=== PATIENT | male | born 1945 | race Caucasian/White ===

== ENCOUNTER 2018-07-28 02:04 | Emergency (ER) | payer MEDICAID ==
[2018-07-28] MEDS ORDERED: Albuterol-Ipratrop 3 mg / 0.5 (3 ml) UD ONE ×2 (02:12→02:50)
[2018-07-28 02:22] VITALS: RESP 20
[2018-07-28] MEDS ORDERED: Albuterol-Ipratrop 3 mg / 0.5 (3 ml) UD INH STA (02:31)
[2018-07-28 03:08] LABS: BASO % 0.7 % (0.0-2.0); HEMOGLOBIN 14.6 g/dL (12.0-18.0); LYMPH # 2.4 K/uL (1.0-4.3); LYMPH % 35.6 % (20.0-40.0); MEAN CELL VOLUME 96.8 fL (80.0-94.0); MEAN CORPUSCULAR HEMOGLOBIN 32.3 pg (27.0-31.0); MEAN CORPUSCULAR HGB CONC 33.4 g/dL (33.0-37.0); MEAN PLATELET VOLUME 9.6 fL (7.2-11.7); MONO # 0.7 K/uL (0.0-0.8); NEUT # 2.6 K/uL (1.8-7.0); NEUT % 38.7 % (50.0-75.0); RBC 4.52 Mil/uL (4.40-5.90); RED CELL DISTRIBUTION WIDTH 13.6 % (11.5-14.5); WHITE BLOOD COUNT 6.8 K/uL (4.8-10.8)
[2018-07-28 03:29] LABS: BLOOD UREA NITROGEN 13 mg/dL (9-20); CALCIUM 8.7 mg/dl (8.6-10.4); GFR NON-AFRICAN AMERICAN > 60
[2018-07-28 03:45] LABS: ALB/GLOB RATIO 1.1 (1.0-2.1); ALT/SGPT 19 U/L (21-72); AST/SGOT 24 U/L (17-59)
[2018-07-28] MEDS ORDERED: MethylPREDNISolone 40 mg Vial IVP STA (04:32)
[2018-07-28] MEDS: MethylPREDNISolone 40 mg Vial IVP STA ×2 (04:33→04:38)
[2018-07-28 05:35] VITALS: BP 108/62; PULSE 84; TEMP 97.9; O2SAT 94
--- NOTE | 2018-07-28 06:22 | C.PDOC ---
History Of Present Illness 73 y/o male presents to the ED with complaints of a mild cough and SOB for 1 day. Patient states that cough is chronic. He denies any chest pain, fever, chills, or recent travel. Patient admits to smoking heavily. Time Seen by Provider: 07/28/18 02:25 Chief Complaint (Nursing): Shortness Of Breath History Per: Patient History/Exam Limitations: no limitations Onset/Duration Of Symptoms: Days (x1) Current Symptoms Are (Timing): Still Present Past Medical History Reviewed: Historical Data, Nursing Documentation, Vital Signs Vital Signs: Last Vital Signs Temp 97.9 F 07/28/18 05:29 Pulse 84 07/28/18 05:29 Resp 20 07/28/18 05:29 BP 108/62 07/28/18 05:29 Pulse Ox 94 L 07/28/18 05:29 - Medical History PMH: COPD Denies: Chronic Kidney Disease Family History: States: Unknown Family Hx - Social History Hx Alcohol Use: Yes (ON WEEKENDS) Hx Substance Use: No - Immunization History Hx Tetanus Toxoid Vaccination: Yes Hx Influenza Vaccination: No Hx Pneumococcal Vaccination: Yes Review Of Systems Except As Marked, All Systems Reviewed And Found Negative. Constitutional: Negative for: Fever, Chills Cardiovascular: Negative for: Chest Pain Respiratory: Positive for: Cough, Shortness of Breath Physical Exam - Physical Exam Appears: Non-toxic, No Acute Distress Skin: Normal Color, Warm, Dry Head: Atraumatic, Normacephalic Eye(s): bilateral: Normal Inspection, PERRL, EOMI Neck: Normal ROM Chest: Symmetrical Cardiovascular: Rhythm Regular, No Murmur Respiratory: No Rales, No Rhonchi, Wheezing (faint bilateral expiratory wheezing) Gastrointestinal/Abdominal: Soft, No Tenderness, No Distention Extremity: Bilateral: Atraumatic, Normal Color And Temperature, Normal ROM Neurological/Psych: Oriented x3, Normal Speech ED Course And Treatment - Laboratory Results Result Diagrams: 07/28/18 03:03 07/28/18 03:03 ECG: Interpreted By Me, Viewed By Me ECG Rhythm: Sinus Rhythm ECG Interpretation: No Acute Changes Rate From EC (bpm) O2 Sat by Pulse Oximetry: 94 (RA) Pulse Ox Interpretation: Normal Medical Decision Making Medical Decision Making: Impression: chronic cough, SOB Initial Plan: --EKG --Blood work --flu swab --blood cultures --albuterol neb x1 --solu-medrol 125 mg IVP --chest x-ray --peak flow pre/post neb Progress: On re-evaluation, patient reports feeling better. Lung sounds improved. Patient will follow up with PMD in 1-2 days. Disposition Counseled Patient/Family Regarding: Studies Performed, Diagnosis, Need For Followup, Rx Given - [facility] - Disposition: HOME/ ROUTINE Disposition Time: 04:40 Condition: GOOD Additional Instructions: ESTEFANY CHONG, thank you for letting us take care of you today. The emergency medical care you received today was directed at your acute symptoms. If you were prescribed any medication, please fill it and take as directed. It may take several days for your symptoms to resolve. Return to the Emergency Department if your symptoms worsen, do not improve, or if you have any other problems. Please contact your doctor or call one of the physicians/clinics you have been referred to that are listed on the Patient Visit Information form that is included in your discharge packet. Bring any paperwork you were given at discharge with you along with any medications you are taking to your follow up visit. Our treatment cannot replace ongoing medical care by a primary care provider outside of the emergency department. Thank you for allowing the [facility] team to be part of your care today. Try to quit smoking or cut down. Follow up with your primary care doctor in 2-3 days for re-evaluation and further management. ESTEFANY CHONG, oli por dejarnos cuidar de usted hoy. La atencin mdica de emergencia que recibi hoy se dirigi a kylah sntomas agudos. Si le recetaron algn medicamento, llnelo y tmelo segn las indicaciones. Los sntomas pueden tardar varios jacobs en resolverse. Regrese al Departamento de Emergencias si kylah sntomas empeoran, no mejoran o si tiene otros problemas. Comunquese con carreno mdico o llame a katalina de los mdicos / clnicas a los que wallace sido referido que figuran en el formulario de Informacin de visita al paciente que se incluye en carreno paquete de mendez. Lleve con usted a carreno consulta de seguimiento toda la documentacin que recibi del mendez junto con los medicamentos que est tomando. Nuestro tratamiento no puede reemplazar la atencin mdica continua por parte de un proveedor de atencin primaria fuera del departamento de emergencias. Oli por permitir que el equipo de [facility] sea parte de carreno atencin hoy. Trate de dejar de fumar o reducir. Jalyn un seguimiento con carreno mdico de atencin primaria en 2-3 jacobs para jae reevaluacin y manejo adicional. Prescriptions: predniSONE [Prednisone] 40 mg PO DAILY #10 tab Instructions: Quitting Smoking for Older Adults, Exacerbation of COPD (DC) Forms: Gen Discharge Inst Andorran, FND (Andorran) Print Language: MACEDONIAN - POA Present On Arrival: None - Clinical Impression Clinical Impression: COPD (chronic obstructive pulmonary disease) - Scribe Statement The provider has reviewed the documentation as recorded by the Scribe (Jaja Sheikh) Provider Attestation: All medical record entries made by the Scribe were at my direction and personally dictated by me. I have reviewed the chart and agree that the record accurately reflects my personal performance of the history, physical exam, med ica decision making, and the department course for this patient. I have also personally directed, reviewed, and agree with the discharge instructions and disposition.
--- NOTE | 2018-07-28 08:54 | RAD ---
Chest x-ray single frontal view HISTORY: Infiltrate. COMPARISON: 11/20/2016 Findings: Biapical pleural thickening with upper lobe granulomatous changes. Mild venous congestion. Right hilar prominence. Tortuous and ectatic aorta. Calcification at the aortic knob. Degenerative changes in the spine and shoulders. Impression: Biapical pleural thickening with upper lobe granulomatous changes. Mild venous congestion. Right hilar prominence. Tortuous and ectatic aorta. Calcification at the aortic knob. Degenerative changes in the spine and shoulders.
--- NOTE | 2018-07-29 13:26 | CARD ---
APPROVED REPORT Date of service: 07/28/2018 EKG Measurement Heart [id number] <Conclusion> Normal sinus rhythm Low voltage QRS Cannot rule out Inferior infarct, age undetermined Abnormal ECG
== END 2018-07-28 05:37 | disposition home or self-care (01) ==
LOC: C.ER 02:04
DX: J44.9 Chronic obstructive pulmonary disease, unspecified (principal)
CPT/HCPCS: 71045; 80053; 84484; 85025; 87040; 87804; 93005; 96374; 99285; J2920

== ENCOUNTER 2018-09-30 10:25 | Emergency (ER) | payer MEDICAID ==
--- NOTE | 2018-09-30 10:59 | C.PDOC ---
History Of Present Illness 73 y/o male,w/PMhx of asthma, presents to the ER for evaluation of chest pain which has been present for the past 2-3 days. As per family, the pain is non- radiating. Family reports that the pain is worse at night. They note that kirby ent is taking his medications for asthma. Denies having SOB, fever, chills, nausea, vomiting, and leg swelling. Of note, HPI was obtained by family member because patient does not speak Finnish. Time Seen by Provider: 09/30/18 10:50 History Per: Family Past Medical History Reviewed: Historical Data, Nursing Documentation, Vital Signs - Medical History PMH: COPD Denies: Chronic Kidney Disease Other Surgeries: Hx of surgeries Family History: States: No Known Family Hx - Social History Hx Tobacco Use: Yes Hx Alcohol Use: Yes (ON WEEKENDS) Hx Substance Use: No - Immunization History Hx Tetanus Toxoid Vaccination: Yes Hx Influenza Vaccination: No Hx Pneumococcal Vaccination: Yes Review Of Systems Except As Marked, All Systems Reviewed And Found Negative. Constitutional: Negative for: Fever, Chills Cardiovascular: Positive for: Chest Pain Respiratory: Negative for: Shortness of Breath Gastrointestinal: Negative for: Nausea, Vomiting Physical Exam - Physical Exam Appears: Non-toxic, No Acute Distress Skin: Normal Color, Warm, Dry Head: Atraumatic, Normacephalic Eye(s): bilateral: Normal Inspection Cardiovascular: Rhythm Regular Respiratory: No Rales, No Rhonchi, Wheezing (mild diffuse expiratory wheezing), Other (mild retractions) Neurological/Psych: Oriented x3, Normal Speech ED Course And Treatment - Laboratory Results Result Diagrams: 09/30/18 11:11 09/30/18 11:11 ECG: Interpreted By Me, Viewed By Me ECG Rhythm: Sinus Tachycardia Rate From EC Progress - Re-Evaluation Re-evaluation Note: 09/30/18 12:30 CTA BL NO W/R/R VSS FEELS BETTER - Data Reviewed Data Reviewed: Lab, Diagnostic imaging, EKG, Old records Medical Decision Making Medical Decision Making: Plan: --Labs --ECG --CXR --Albuterol -Solu-Medrol IV Disposition Counseled Patient/Family Regarding: Studies Performed, Diagnosis, Need For Followup, Rx Given - Disposition Referrals: [facility] [Outside] [facility] [Outside] Disposition: HOME/ ROUTINE Disposition Time: 12:30 Condition: IMPROVED Prescriptions: Ibuprofen [Motrin] 600 mg PO Q6 #30 tab predniSONE [Prednisone] 60 mg PO DAILY #12 tab Instructions: Asthma, Adult (DC) Print Language: LAO - Clinical Impression Clinical Impression: Chest discomfort, Asthma exacerbation - Scribe Statement The provider has reviewed the documentation as recorded by the Vicente Preston Provider Attestation: All medical record entries made by the Kennedyibsamia were at my direction and personally dictated by me. I have reviewed the chart and agree that the record accurately reflects my personal performance of the history, physical exam, medical decision making, and the department course for this patient. I have also personally directed, reviewed, and agree with the discharge instructions and disposition.
[2018-09-30 11:01] VITALS: TEMP 97.9; O2SAT 97
[2018-09-30] MEDS: Albuterol-Ipratrop 3 mg / 0.5 (3 ml) UD IH SCH ×3 (11:08→11:32)
[2018-09-30] MEDS ORDERED: Albuterol-Ipratrop 3 mg / 0.5 (3 ml) UD ONE (11:15)
[2018-09-30 11:16] LABS: BASO % 0.5 % (0.0-2.0); EOS # 0.8 K/uL (0.0-0.7); EOS % 10.3 % (0.0-4.0); HEMOGLOBIN 14.7 g/dL (12.0-18.0); LYMPH # 1.9 K/uL (1.0-4.3); LYMPH % 23.9 % (20.0-40.0); MEAN CELL VOLUME 95.5 fL (80.0-94.0); MEAN CORPUSCULAR HEMOGLOBIN 32.2 pg (27.0-31.0); MEAN CORPUSCULAR HGB CONC 33.7 g/dL (33.0-37.0); MEAN PLATELET VOLUME 9.7 fL (7.2-11.7); MONO # 0.8 K/uL (0.0-0.8); MONO % 10.3 % (0.0-10.0); NEUT # 4.5 K/uL (1.8-7.0); RBC 4.58 Mil/uL (4.40-5.90); RED CELL DISTRIBUTION WIDTH 13.4 % (11.5-14.5); WHITE BLOOD COUNT 8.1 K/uL (4.8-10.8)
[2018-09-30] MEDS ORDERED: MethylPREDNISolone 40 mg Vial ONE (11:18)
--- NOTE | 2018-09-30 11:18 | RAD ---
Date of service: 09/30/2018 HISTORY: SOB COMPARISON: 07/28/2018 TECHNIQUE: Chest PA and lateral FINDINGS: LUNGS: No active pulmonary disease. PLEURA: No significant pleural effusion identified. No pneumothorax apparent. CARDIOVASCULAR: No aortic atherosclerotic calcification present. Normal cardiac size. No pulmonary vascular congestion. OSSEOUS STRUCTURES: No significant abnormalities. VISUALIZED UPPER ABDOMEN: Normal. OTHER FINDINGS: None. IMPRESSION: No active disease.
[2018-09-30 11:44] LABS: B-TYPE NATRIURETIC PEPTIDE 28.7 pg/mL (0-900)
[2018-09-30 12:01] VITALS: BP 134/73; PULSE 90; RESP 16
[2018-09-30 12:05] LABS: ALT/SGPT 15 U/L (21-72); AST/SGOT 23 U/L (17-59); BLOOD UREA NITROGEN 8 mg/dL (9-20); CALCIUM 8.6 mg/dl (8.6-10.4); GFR NON-AFRICAN AMERICAN > 60
[2018-09-30 12:21] LABS: ALB/GLOB RATIO 1.1 (1.0-2.1)
--- NOTE | 2018-10-01 22:16 | CARD ---
APPROVED REPORT Date of service: 09/30/2018 EKG Measurement Heart [id number] <Conclusion> Normal sinus rhythm Normal ECG
== END 2018-09-30 13:02 | disposition home or self-care (01) ==
LOC: C.ER 10:25
DX: J45.901 Unspecified asthma with (acute) exacerbation (principal); R07.89 Other chest pain
CPT/HCPCS: 71046; 80053; 83880; 84484; 85025; 93005; 94640; 96374; 99285; J2930